=== PATIENT | male | born 1930 | race Caucasian/White ===

== ENCOUNTER 2020-09-21 10:46 | Emergency (ER) | payer OTHER ==
[~2020-09-21] VITALS: Ht 180.3 cm; Wt 81.7 kg
[~2020-09-21 10:46] MED LIST: ALBU90OI INH; CETI5 PO; CHOL10002 PO; CYAN1000 PO; Cosamin Ds Tab1 EACH PO; Flonase 0.05% N16 GM; HYDHCL25 PO; KETO15TC TOP; Nitrostat0.4 MG SL; Simvastatin20 MG PO; TRIA80TC TOP; Thera-M Caplet1 EACH PO
[2020-09-21 13:31] LABS: Source, Urine Catheter
[2020-09-21 13:41] LABS: Appearance, Urine Cloudy (Clear); Bilirubin, Urine Neg (Neg); Blood, Urine 5+ (Neg); Color, Urine Yellow (P-Yellow); Glucose Qualitative, Urine Neg (Neg); Ketones, Urine Neg (Neg); Leukocyte Esterase, Urine 3+ (Neg); Nitrite, Urine Neg (Neg); Protein, Urine 3+ (Neg); Specific Gravity, Urine 1.015 (1.003-1.022); Urobilinogen, Urine NORM (Normal)
[2020-09-21 13:49] LABS: Bacteria Mod /hpf; Red Blood Cells, Urine TNTC /hpf (0-2); Squamous Epithelial Cells Not Seen /hpf (Few); White Blood Cells, Urine TNTC /hpf (0-5)
[2020-09-21] MEDS ORDERED: NITR100CA PO (14:04)
== END 2020-09-21 14:08 | disposition home or self-care (01) ==
LOC: ER 10:46
PROVIDERS: Physician Assistant
DX: T83.198A Other mechanical complication of other urinary devices and implants, initial encounter (principal); N39.0 Urinary tract infection, site not specified; J44.9 Chronic obstructive pulmonary disease, unspecified; E11.9 Type 2 diabetes mellitus without complications; Z79.899 Other long term (current) drug therapy; Z87.891 Personal history of nicotine dependence
CPT/HCPCS: 51102; 81001; 87077; 87086; 87186; 99283-25; A9270; C2627